=== PATIENT | female | born 1980 | race African-American/Black ===

== ENCOUNTER 2017-05-29 21:56 | Inpatient (IN) | payer MEDICAID ==
[~2017-05-29] VITALS: Ht 170.2 cm; Wt 181.6 kg
[~2017-05-29 21:56] MED LIST: ATOR20TA PO; ERGO1CAP23 PO; METF-370 PO
[2017-05-29] MEDS ORDERED: CLINDAMYCIN 600MG IV 50 ML IV ONE (22:30)
[2017-05-29] MEDS ORDERED: cefTRIAXone 1GM/10ml IVPUSH 10 ML IV ONE (22:30)
[2017-05-29 22:38] LABS: Basophils # (auto) 0 uL; Basophils % (auto) 0.4 % (0.0-2.0); Eosinophils # (auto) 0 uL; Hematocrit 46.8 % (36.0-46.0); Hemoglobin 15.1 g/dL (12.2-16.2); Lymphocytes # (auto) 1.6 uL; Lymphocytes % (auto) 13.4 % (10.0-50.0); Mean Corpuscular Hemoglobin 28.1 pg (28.0-32.0); Mean Corpuscular Hgb Conc. 32.2 g/dL (32.0-36.0); Mean Corpuscular Volume 87.1 fL (80.0-100.0); Monocytes # (auto) 1.2 uL; Monocytes % (auto) 10.5 % (0.0-12.0); Neutrophils # (auto) 8.9 uL; Neutrophils % (auto) 75.7 % (37.0-80.0); Nucleated Red Blood Cells % 0.4 %; Platelet Count (auto) 258 10^3/uL (140-450); Red Blood Cells 5.37 10^6/uL (4.0-5.20); Red Cell Distribution Width 14.8 % (11.8-14.3); White Blood Cell 11.7 10^3/uL (4.4-10.8)
[2017-05-29 23:01] LABS: Albumin 3.5 g/dL (3.4-5.0); BUN/Creatinine Ratio 8.2; Calcium 8.8 mg/dL (8.5-10.1); Potassium 3.5 mmol/L (3.5-5.1)
[2017-05-29 23:03] LABS: Bilirubin, Total 0.8 mg/dL (0.2-1.0); Total Protein 8.7 g/dL (6.4-8.2)
[2017-05-29] MEDS ORDERED: KETOROLAC TROMETH 30 MG/ML 1ML VIAL IV ONE (23:30)
[2017-05-30] MEDS ORDERED: HYDROcodone-ACET 10/325MG TAB PO ONE (00:45)
[2017-05-30] MEDS ORDERED: TEMAZEPAM 15 MG CAP PO PRN (03:45)
[2017-05-30] MEDS ORDERED: SODIUM CHLORIDE 0.9% 1,000 ML IV ONE (03:45)
[2017-05-30] MEDS ORDERED: ONDANSETRON HCL 4 MG/2 ML VIAL IV PRN (03:45)
[2017-05-30] MEDS ORDERED: ACETAMINOPHEN 325 MG TAB PO PRN (03:45)
[2017-05-30] MEDS: SODIUM CHLORIDE 0.9% 1,000 ML IV SCH ×2 (06:03→15:00)
[2017-05-30] MEDS: MORPHINE SULFATE 4 MG/ML SYR/VIAL IV PRN ×2 (06:11→07:15)
[2017-05-30] MEDS: CLINDAMYCIN 600MG IV 50 ML IV SCH ×3 (06:12→23:48)
[2017-05-30] MEDS: HYDROcodone-ACET 5/325MG TAB PO PRN ×2 (07:42→16:14)
[2017-05-30] MEDS ORDERED: cefTRIAXone 1GM/10ml IVPUSH 10 ML IV SCH (09:00)
[2017-05-30] MEDS: PANTOPRAZOLE 40 MG/10 ML VIAL IV SCH (10:00)
[2017-05-30] MEDS: ENOXAPARIN SOD 40 MG/0.4 ML SYRINGE SC SCH (10:01)
[2017-05-30 13:50] VITALS: BP 103/67
[2017-05-30] MEDS ORDERED: DEXTROSE (50%) 50ML SYRG IV PRN (15:30)
[2017-05-30] MEDS: LEVOFLOXACIN 500MG 100 ML IV SCH (16:08)
[2017-05-30 16:35] VITALS: BP 102/65
[2017-05-30] MEDS: ACCU-CHEK COMFORT CURVE STRIP VI SCH ×2 (17:00→22:00)
[2017-05-30] MEDS: InsuLIN REG 1unit/0.01ml Soln (100units/ml) SC SCH ×2 (17:00→22:00)
[2017-05-30] MEDS: PIPERACILLIN-TAZOB 3.375GM 50 ML IV SCH (18:20)
[2017-05-30 20:00] VITALS: BP 84/52
[2017-05-30 22:00] VITALS: BP 84/52
[2017-05-31 01:20] VITALS: BP 84/52
[2017-05-31] MEDS: PIPERACILLIN-TAZOB 3.375GM 50 ML IV SCH ×4 (01:41→18:06)
[2017-05-31] MEDS: SODIUM CHLORIDE 0.9% 1,000 ML IV SCH ×3 (01:42→22:11)
[2017-05-31 05:00] VITALS: BP 98/46
[2017-05-31] MEDS: CLINDAMYCIN 600MG IV 50 ML IV SCH ×3 (06:02→22:11)
[2017-05-31] MEDS: ACCU-CHEK COMFORT CURVE STRIP VI SCH ×4 (07:03→22:00)
[2017-05-31] MEDS: InsuLIN REG 1unit/0.01ml Soln (100units/ml) SC SCH ×4 (07:03→22:00)
[2017-05-31 07:38] LABS: Basophils # (auto) 0 uL; Basophils % (auto) 0.4 % (0.0-2.0); Eosinophils # (auto) 0 uL; Eosinophils % (auto) 0.1 % (0.0-7.0); Hematocrit 41.7 % (36.0-46.0); Hemoglobin 13.4 g/dL (12.2-16.2); Lymphocytes # (auto) 2.1 uL; Lymphocytes % (auto) 20.6 % (10.0-50.0); Mean Corpuscular Hemoglobin 28.4 pg (28.0-32.0); Mean Corpuscular Hgb Conc. 32.1 g/dL (32.0-36.0); Mean Corpuscular Volume 88.4 fL (80.0-100.0); Monocytes # (auto) 1.1 uL; Neutrophils % (auto) 67.9 % (37.0-80.0); Nucleated Red Blood Cells % 0.1 %; Platelet Count (auto) 222 10^3/uL (140-450); Red Blood Cells 4.72 10^6/uL (4.0-5.20); Red Cell Distribution Width 14.7 % (11.8-14.3); White Blood Cell 10.2 10^3/uL (4.4-10.8)
[2017-05-31 07:59] LABS: Albumin 2.7 g/dL (3.4-5.0); BUN/Creatinine Ratio 9.5; Bilirubin, Total 0.7 mg/dL (0.2-1.0); Calcium 7.6 mg/dL (8.5-10.1); Potassium 3.6 mmol/L (3.5-5.1); Total Protein 7.7 g/dL (6.4-8.2)
[2017-05-31 09:00] VITALS: BP 103/69
[2017-05-31] MEDS: PANTOPRAZOLE 40 MG/10 ML VIAL IV SCH (09:08)
[2017-05-31] MEDS: LEVOFLOXACIN 500MG 100 ML IV SCH (09:08)
[2017-05-31] MEDS: ENOXAPARIN SOD 40 MG/0.4 ML SYRINGE SC SCH (09:09)
[2017-05-31 12:29] VITALS: BP 110/69
[2017-05-31 12:50] LABS: Urine Bacteria NONE SEEN /hpf (None Seen); Urine Blood 3+ /uL (Negative); Urine Specific Gravity 1.025 (1.001-1.035); Urine WBC 136 /hpf (0 - 5)
[2017-05-31 17:00] VITALS: BP 107/62
[2017-05-31 21:49] VITALS: BP 102/74
[2017-06-01] MEDS: PIPERACILLIN-TAZOB 3.375GM 50 ML IV SCH ×4 (00:21→17:54)
[2017-06-01] MEDS: MORPHINE SULFATE 4 MG/ML SYR/VIAL IV PRN (00:34)
[2017-06-01 05:00] VITALS: BP 115/79
[2017-06-01] MEDS: CLINDAMYCIN 600MG IV 50 ML IV SCH ×3 (06:13→22:04)
[2017-06-01] MEDS: SODIUM CHLORIDE 0.9% 1,000 ML IV SCH ×2 (06:14→15:45)
[2017-06-01 06:50] LABS: Basophils # (auto) 0.1 uL; Basophils % (auto) 0.8 % (0.0-2.0); Eosinophils # (auto) 0.1 uL; Eosinophils % (auto) 0.8 % (0.0-7.0); Hematocrit 40.3 % (36.0-46.0); Hemoglobin 13.1 g/dL (12.2-16.2); Lymphocytes # (auto) 1.9 uL; Lymphocytes % (auto) 22.7 % (10.0-50.0); Mean Corpuscular Hemoglobin 28.5 pg (28.0-32.0); Mean Corpuscular Hgb Conc. 32.4 g/dL (32.0-36.0); Mean Corpuscular Volume 88.1 fL (80.0-100.0); Monocytes # (auto) 0.8 uL; Monocytes % (auto) 10.1 % (0.0-12.0); Neutrophils # (auto) 5.5 uL; Neutrophils % (auto) 65.6 % (37.0-80.0); Nucleated Red Blood Cells % 0.1 %; Platelet Count (auto) 259 10^3/uL (140-450); Red Blood Cells 4.58 10^6/uL (4.0-5.20); Red Cell Distribution Width 15.1 % (11.8-14.3); White Blood Cell 8.3 10^3/uL (4.4-10.8)
[2017-06-01] MEDS: ACCU-CHEK COMFORT CURVE STRIP VI SCH ×4 (07:00→22:14)
[2017-06-01] MEDS: InsuLIN REG 1unit/0.01ml Soln (100units/ml) SC SCH ×4 (07:00→22:00)
[2017-06-01 07:12] LABS: BUN/Creatinine Ratio 11.1; Calcium 8.3 mg/dL (8.5-10.1); Potassium 3.7 mmol/L (3.5-5.1)
[2017-06-01 09:08] VITALS: BP 105/76
[2017-06-01] MEDS: ENOXAPARIN SOD 40 MG/0.4 ML SYRINGE SC SCH (09:19)
[2017-06-01] MEDS: PANTOPRAZOLE 40 MG/10 ML VIAL IV SCH (09:19)
[2017-06-01] MEDS: LEVOFLOXACIN 500MG 100 ML IV SCH (09:19)
[2017-06-01 12:55] VITALS: BP 117/63
[2017-06-01 18:02] VITALS: BP 120/70
[2017-06-01 21:49] VITALS: BP 104/60
[2017-06-02] MEDS: PIPERACILLIN-TAZOB 3.375GM 50 ML IV SCH ×3 (00:29→11:17)
[2017-06-02 05:00] VITALS: BP 109/62
[2017-06-02] MEDS: CLINDAMYCIN 600MG IV 50 ML IV SCH (06:04)
[2017-06-02] MEDS: ACCU-CHEK COMFORT CURVE STRIP VI SCH ×2 (07:11→11:16)
[2017-06-02] MEDS: InsuLIN REG 1unit/0.01ml Soln (100units/ml) SC SCH ×2 (07:12→11:16)
[2017-06-02] MEDS: SODIUM CHLORIDE 0.9% 1,000 ML IV SCH ×2 (07:24→11:16)
[2017-06-02] MEDS: MORPHINE SULFATE 4 MG/ML SYR/VIAL IV PRN (07:25)
[2017-06-02 07:35] LABS: Basophils # (auto) 0 uL; Basophils % (auto) 0.5 % (0.0-2.0); Eosinophils # (auto) 0.1 uL; Eosinophils % (auto) 1.1 % (0.0-7.0); Hematocrit 41.8 % (36.0-46.0); Hemoglobin 13.3 g/dL (12.2-16.2); Lymphocytes # (auto) 1.9 uL; Lymphocytes % (auto) 30.2 % (10.0-50.0); Mean Corpuscular Hemoglobin 28.2 pg (28.0-32.0); Mean Corpuscular Hgb Conc. 31.9 g/dL (32.0-36.0); Mean Corpuscular Volume 88.3 fL (80.0-100.0); Monocytes # (auto) 0.6 uL; Monocytes % (auto) 9.5 % (0.0-12.0); Neutrophils # (auto) 3.7 uL; Neutrophils % (auto) 58.7 % (37.0-80.0); Nucleated Red Blood Cells % 0.3 %; Platelet Count (auto) 281 10^3/uL (140-450); Red Blood Cells 4.74 10^6/uL (4.0-5.20); Red Cell Distribution Width 14.8 % (11.8-14.3); White Blood Cell 6.2 10^3/uL (4.4-10.8)
[2017-06-02 08:06] LABS: Albumin 2.6 g/dL (3.4-5.0); Bilirubin, Total 0.5 mg/dL (0.2-1.0); Calcium 7.9 mg/dL (8.5-10.1); Potassium 3.9 mmol/L (3.5-5.1); Total Protein 7.6 g/dL (6.4-8.2)
[2017-06-02 09:49] VITALS: BP 119/56
[2017-06-02] MEDS: ENOXAPARIN SOD 40 MG/0.4 ML SYRINGE SC SCH (10:00)
[2017-06-02] MEDS: PANTOPRAZOLE 40 MG/10 ML VIAL IV SCH (10:26)
[2017-06-02] MEDS: LEVOFLOXACIN 500MG 100 ML IV SCH (10:26)
[2017-06-02 12:35] VITALS: BP 118/58
== END 2017-06-02 12:10 | disposition home or self-care (01) | DRG 383 ==
LOC: ER 21:56 → OVERFLOW 21:57 → EAST 05-30 13:35
PROVIDERS: ADMIT Nurse Practitioner; ATTEND Internal Medicine
DX: L03.211 Cellulitis of face (principal); I11.0 Hypertensive heart disease with heart failure; R65.10 Systemic inflammatory response syndrome (SIRS) of non-infectious origin without acute organ dysfunction; Z68.44 Body mass index [BMI] 60.0-69.9, adult; I50.9 Heart failure, unspecified; E66.01 Morbid (severe) obesity due to excess calories; K02.9 Dental caries, unspecified; K04.7 Periapical abscess without sinus; F17.210 Nicotine dependence, cigarettes, uncomplicated; J44.9 Chronic obstructive pulmonary disease, unspecified; E11.9 Type 2 diabetes mellitus without complications; K05.10 Chronic gingivitis, plaque induced; Z80.1 Family history of malignant neoplasm of trachea, bronchus and lung
CPT/HCPCS: 36415; 70486; 80048; 80053; 81001; 82962; 83605; 85025; 87040; 96361; 96365; 96375; C9113; J1815; J1885; J1956; J2405; J2543; J3490

== ENCOUNTER 2017-11-16 00:42 | Emergency (ER) | payer MEDICAID ==
[~2017-11-16] VITALS: Ht 170.2 cm; Wt 169.6 kg
[2017-11-16 08:10] LABS: Basophils # (auto) 0.1 uL; Eosinophils # (auto) 0.1 uL; Eosinophils % (auto) 1.5 % (0.0-7.0); Lymphocytes # (auto) 2.1 uL; Monocytes # (auto) 0.8 uL
[2017-11-16 08:12] LABS: Basophils % (auto) 1.2 % (0.0-2.0); Hematocrit 53.6 % (36.0-46.0); Hemoglobin 17.2 g/dL (12.2-16.2); Lymphocytes % (auto) 29.8 % (10.0-50.0); Mean Corpuscular Hgb Conc. 32.1 g/dL (32.0-36.0); Mean Corpuscular Volume 87.2 fL (80.0-100.0); Monocytes % (auto) 11.4 % (0.0-12.0); Neutrophils # (auto) 3.9 uL; Neutrophils % (auto) 56.1 % (37.0-80.0); Nucleated Red Blood Cells % 0.3 %; Platelet Count (auto) 244 10^3/uL (140-450); Red Blood Cells 6.14 10^6/uL (4.0-5.20); Red Cell Distribution Width 14.4 % (11.8-14.3); White Blood Cell 6.9 10^3/uL (4.4-10.8)
[2017-11-16 08:28] LABS: Albumin 3.5 g/dL (3.4-5.0); BUN/Creatinine Ratio 5.3; Bilirubin, Total 0.7 mg/dL (0.2-1.0); Calcium 9.4 mg/dL (8.5-10.1); Potassium 3.9 mmol/L (3.5-5.1); Total Protein 8.7 g/dL (6.4-8.2)
[2017-11-16 08:31] LABS: Urine Bacteria FEW /hpf (None Seen); Urine Blood 1+ /uL (Negative); Urine Budding Yeast MODERATE /hpf (None Seen); Urine Specific Gravity 1.031 (1.001-1.035); Urine WBC 43 /hpf (0 - 5)
[2017-11-16] MEDS ORDERED: SODIUM CHLORIDE 0.9% 1,000 ML IV ONE ×2 (08:36→09:45)
[2017-11-16] MEDS ORDERED: InsuLIN R (HUMAN) 100 UNITS in SODIUM CHL 0.9% 99 ML IV SCH (08:38)
[2017-11-16] MEDS ORDERED: InsuLIN REG 1unit/0.01ml Soln (100units/ml) IV ONE (08:45)
[2017-11-16 11:10] VITALS: BP 114/76
== END 2017-11-16 11:27 | disposition home or self-care (01) ==
LOC: ER 00:42
DX: N76.4 Abscess of vulva (principal); N39.0 Urinary tract infection, site not specified; E11.65 Type 2 diabetes mellitus with hyperglycemia; J44.9 Chronic obstructive pulmonary disease, unspecified; F17.210 Nicotine dependence, cigarettes, uncomplicated; E66.01 Morbid (severe) obesity due to excess calories; Z79.84 Long term (current) use of oral hypoglycemic drugs; Z79.899 Other long term (current) drug therapy; Z68.43 Body mass index [BMI] 50.0-59.9, adult
CPT/HCPCS: 36415; 80053; 81001; 82962; 85025; 96361; 96374; 99285; J1815; J7030

== ENCOUNTER 2018-12-12 03:36 | Inpatient (IN) | payer MEDICAID ==
[~2018-12-12] VITALS: Ht 170.2 cm; Wt 159.7 kg
[2018-12-12 04:20] LABS: Urine Bacteria MOD /hpf (None Seen); Urine Blood 1+ /uL (Negative); Urine Specific Gravity 1.033 (1.001-1.035); Urine WBC 38 /hpf (0 - 5)
[2018-12-12] MEDS ORDERED: SODIUM CHLORIDE 0.9% 1,000 ML IV ONE ×2 (06:30→12:15)
[2018-12-12 08:07] LABS: Alcohol, Urine < 3.0 mg/dL (0-5); Amphetamine Screen, Urine NEGATIVE (NEGATIVE); Barbiturate Scree,Urine NEGATIVE (NEGATIVE); Benzodiazephine Screen, Urine NEGATIVE (NEGATIVE); Cannabinoid Screen, Urine NEGATIVE (NEGATIVE); Cocaine Screen, Urine NEGATIVE (NEGATIVE); Opiate Scree,Urine NEGATIVE (NEGATIVE); Phencyclidine Screen, Urine NEGATIVE (NEGATIVE)
[2018-12-12 08:16] LABS: Basophils # (auto) 0.1 uL; Eosinophils # (auto) 0.1 uL; Eosinophils % (auto) 1.6 % (0.0-7.0); Hematocrit 44.2 % (36.0-46.0); Hemoglobin 15.1 g/dL (12.2-16.2); Lymphocytes # (auto) 2.3 uL; Lymphocytes % (auto) 40.7 % (10.0-50.0); Mean Corpuscular Hemoglobin 29.3 pg (28.0-32.0); Mean Corpuscular Hgb Conc. 34.3 g/dL (32.0-36.0); Mean Corpuscular Volume 85.4 fL (80.0-100.0); Monocytes # (auto) 0.5 uL; Monocytes % (auto) 7.9 % (0.0-12.0); Neutrophils # (auto) 2.8 uL; Neutrophils % (auto) 48.8 % (37.0-80.0); Nucleated Red Blood Cells % 0.2 %; Platelet Count (auto) 222 10^3/uL (140-450); Red Blood Cells 5.17 10^6/uL (4.0-5.20); Red Cell Distribution Width 12.9 % (11.8-14.3); White Blood Cell 5.7 10^3/uL (4.4-10.8)
[2018-12-12 08:31] LABS: Albumin 3.5 g/dL (3.4-5.0); Calcium 8.8 mg/dL (8.5-10.1)
[2018-12-12 08:33] LABS: BUN/Creatinine Ratio 12.2; Bilirubin, Total 0.4 mg/dL (0.2-1.0); Total Protein 8.1 g/dL (6.4-8.2)
[2018-12-12] MEDS ORDERED: cefTRIAXone 1GM/50ML D5W 50 ML IV ONE (08:45)
[2018-12-12] MEDS ORDERED: GLIP5TAB12 (09:30)
[2018-12-12] MEDS ORDERED: MORPHINE SULF INJ 2 MG/ML SYRINGE 1ML IV PRN (12:15)
[2018-12-12] MEDS ORDERED: NITROGLYCERIN 0.4 MG SL TAB SL PRN (12:15)
[2018-12-12] MEDS ORDERED: ONDANSETRON HCL 4 MG/2 ML VIAL IV PRN (12:15)
[2018-12-12] MEDS ORDERED: HYDROcodone-ACET 5/325MG TAB PO PRN (12:15)
[2018-12-12] MEDS ORDERED: ACETAMINOPHEN 500 MG TAB PO PRN (12:15)
[2018-12-12] MEDS ORDERED: DEXTROSE (50%) 50ML SYRG IV PRN (12:15)
[2018-12-12] MEDS: FLUCONAZOLE 200MG/100ML 100 ML IV SCH ×2 (12:43→16:41)
--- NOTE | 2018-12-12 16:09 | NUR ---
MS admit from ER BLAKE MCCLURE admitted to tele/MS after SBAR received. Patient oriented to MICHELLE DAVIDSON, RN primary RN, unit, room 245B, bed, and unit policies regarding patient care and visiting hours. Patient weighed by bedscale and encouraged to call if they need something. All questions and concerns addressed, patient verbalized understanding. Bed in low and locked position, rails up x2, no-slip socks on.
--- NOTE | 2018-12-12 16:30 | NUR ---
IV insertion and IV removal IV access obtained, via clean sterile technique by inserting 20 gauge catheter at LEFT AC after 1 attempt. IV secured properly. No trauma to site. Patient tolerated well. IV DC'd with clean sterile technique, catheter fully intact. Pressure dressing applied to site. Patient tolerated well.
--- NOTE | 2018-12-12 16:31 | NUR ---
Patient admitted to same day surgery center via wheelchair. Patient transported with all personal belongings and no s/s of distress noted.
[2018-12-12] MEDS: SODIUM CHLORIDE 0.9% 1,000 ML IV SCH ×2 (16:39→23:44)
[2018-12-12 16:41] VITALS: BP 125/87
--- NOTE | 2018-12-12 16:46 | NUR ---
home meds/patient name Patient stated she does not take any medications at home. Patient stated that she goes by the name Mervat and would like be be addressed as this.
--- NOTE | 2018-12-12 17:30 | NUR ---
ENCOURAGED PATIENT FOR ACCUCHECK PATIENT STATED SHE HAS ANXIETY WITH ACCUCHECKS, STATED THAT IF SHE TOLERATED THE IV INSERTION SHE CAN TOLERATE THE ACCUCHECK LANCET, PATIENT REQUESTING TO BE POKED ON A DIFFERENT LOCATION THAN FINGERTIP, OR WITH A LARGER NEEDLE. INFORMED THAT THE LANCETS ARE DESIGNED FOR FINGERTIP POKES WITH THE APPROPRIATE DEPTH AND I CANNOT SAFELY DO THAT WITH A DIFFERENT NEEDLE. PATIENT FINALLY CONSENTED TO ACCUCHECK, TOLERATED IT WELL. WILL ADMINISTER INSULIN ORDERED.
[2018-12-12] MEDS ORDERED: TAMSULOSIN HYDROCHLORIDE 0.4 MG CAP PO SCH (18:00)
--- NOTE | 2018-12-12 19:40 | NUR ---
Opening Shift Note Assumed care of patient, awake and alert. No S/S of distress/SOB or pain. Instructed on POC and to call for assistance PRN, will continue to monitor for changes Q1hr and PRN.
[2018-12-12] MEDS: ACCU-CHEK COMFORT CURVE STRIP VI SCH ×2 (19:43→22:00)
[2018-12-12] MEDS: InsuLIN REG 1unit/0.01ml Soln (100units/ml) SC SCH ×2 (19:43→22:00)
[2018-12-12 22:00] VITALS: BP 135/82
[2018-12-12] MEDS: MORPHINE SULF INJ 2 MG/ML SYRINGE 1ML IV PRN (22:19)
[2018-12-13] MEDS ORDERED: LEVETIRACETAM 500 MG/5ML INJ IV ONE (00:01)
--- NOTE | 2018-12-13 00:08 | NUR ---
Rounds Patient sleeping. No S/S of distress/SOB on room air, respirations even and unlabored. Will continue to monitor changes q1hr and PRN.
--- NOTE | 2018-12-13 03:50 | NUR ---
Outside pharmacy/ Keppra Verified with outside patient, keppra pulled by other RN, pulled in error, Keppra not for patient.
[2018-12-13 05:00] VITALS: BP 118/85
[2018-12-13] MEDS: SODIUM CHLORIDE 0.9% 1,000 ML IV SCH ×3 (05:00→22:00)
--- NOTE | 2018-12-13 06:12 | NUR ---
Rounds Patient sleeping, respirations even and unlabored. No S/S of distress/SOB or pain. Will continue to monitor changes q1hr and PRN.
[2018-12-13] MEDS: ACCU-CHEK COMFORT CURVE STRIP VI SCH ×4 (06:26→22:21)
[2018-12-13] MEDS: InsuLIN REG 1unit/0.01ml Soln (100units/ml) SC SCH ×4 (06:27→22:21)
--- NOTE | 2018-12-13 06:40 | NUR ---
IV removal Left AC forearm IV DC'd with clean sterile technique due to infiltration, catheter fully intact. Pressure dressing applied to site. Patient tolerated well. Pt requests to have new IV inserted in 15 minutes. NOTE:
--- NOTE | 2018-12-13 07:01 | NUR ---
IV insertion IV access obtained, via clean sterile technique by inserting 22 gauge catheter at left forearm after 1 attempt(s). IV secured properly. No trauma to site. Patient tolerated well. NOTE:
[2018-12-13 07:22] LABS: Basophils # (auto) 0.1 uL; Basophils % (auto) 1.9 % (0.0-2.0); Eosinophils # (auto) 0.1 uL; Eosinophils % (auto) 2.4 % (0.0-7.0); Hematocrit 44.1 % (36.0-46.0); Hemoglobin 15.1 g/dL (12.2-16.2); Lymphocytes # (auto) 2.2 uL; Mean Corpuscular Hemoglobin 29.7 pg (28.0-32.0); Mean Corpuscular Hgb Conc. 34.2 g/dL (32.0-36.0); Mean Corpuscular Volume 86.9 fL (80.0-100.0); Monocytes # (auto) 0.5 uL; Monocytes % (auto) 9.2 % (0.0-12.0); Neutrophils # (auto) 2.5 uL; Neutrophils % (auto) 46.5 % (37.0-80.0); Nucleated Red Blood Cells % 0.1 %; Platelet Count (auto) 217 10^3/uL (140-450); Red Blood Cells 5.08 10^6/uL (4.0-5.20); Red Cell Distribution Width 12.8 % (11.8-14.3); White Blood Cell 5.4 10^3/uL (4.4-10.8)
[2018-12-13 07:36] LABS: Anion Gap 10 (5-15); BUN/Creatinine Ratio 12.3; Blood Urea Nitrogen 7 mg/dL (7-18); Calcium 8.4 mg/dL (8.5-10.1); Carbon Dioxide 22 mmol/L (21-32); Chloride 101 mmol/L (98-107); GFR African American 154 mL/min; GFR Non-African American 128 mL/min; Glucose 310 mg/dL (74-106); Potassium 3.9 mmol/L (3.5-5.1); Sodium 133 mmol/L (136-145)
[2018-12-13 09:00] VITALS: BP 132/69
[2018-12-13] MEDS: cefTRIAXone 1GM/50ML D5W 50 ML IV SCH (09:16)
[2018-12-13] MEDS: FLUCONAZOLE 200MG/100ML 100 ML IV SCH (10:02)
[2018-12-13] MEDS: FAMOTIDINE 20 MG TAB PO SCH (10:08)
--- NOTE | 2018-12-13 12:25 | NUR ---
pt was trying to get food outside, pt was educated about diabetic diet, medication and exercise, made aware she cannot get food outside due to her high blood sugar, pt stated " I don't care about the complications of high blood sugar i will eat whatever I want". will continue to monitor.
[2018-12-13 13:00] VITALS: BP 110/70
[2018-12-13 17:00] VITALS: BP 118/70
--- NOTE | 2018-12-13 19:10 | NUR ---
Opening Shift Note Assumed care of patient, awake and alert. No S/S of distress/SOB or pain. Safety measures in place bed in lowest position, side rails x2 up, call light within reach. Instructed on POC and to call for assist PRN, will continue to monitor for changes Q1hr and PRN.
--- NOTE | 2018-12-13 19:28 | NUR ---
Patient complaining that she is "being starved". Educated patient on her high blood sugar levels and why we need to control what is being eaten, patient stated " I don't care about my blood sugar" and is threatening to go AMA. Will continue to monitor.
[2018-12-13 22:00] VITALS: BP 99/62
[2018-12-13] MEDS: MORPHINE SULF INJ 2 MG/ML SYRINGE 1ML IV PRN (22:22)
[2018-12-14 05:06] VITALS: BP 96/65
[2018-12-14 07:07] LABS: BUN/Creatinine Ratio 9.4; Calcium 8.7 mg/dL (8.5-10.1); Potassium 4.1 mmol/L (3.5-5.1)
[2018-12-14] MEDS: ACCU-CHEK COMFORT CURVE STRIP VI SCH ×2 (07:12→11:21)
[2018-12-14] MEDS: InsuLIN REG 1unit/0.01ml Soln (100units/ml) SC SCH ×2 (07:12→11:31)
--- NOTE | 2018-12-14 07:39 | NUR ---
Opening Note Assumed pt care from [facility] nurse. Pt is a/ox4 with no s/s of distress or SOB. Pt is currently sitting upright in bed with no complaints other than mild vaginal discomfort. Discussed POC with pt and the possibility of d/c today; pt stated that she "does not want to leave... until [her issue] is resolved". Discussed with pt the possibility of PO antibiotics and pt stated "those don't work". Safety measures maintained with call light within reach, bed in lowest position and side rails up. Will continue to monitor for changes q1hr and prn.
[2018-12-14 09:00] VITALS: BP 131/77
[2018-12-14] MEDS: cefTRIAXone 1GM/50ML D5W 50 ML IV SCH (09:17)
[2018-12-14] MEDS: FAMOTIDINE 20 MG TAB PO SCH (09:18)
[2018-12-14] MEDS: SODIUM CHLORIDE 0.9% 1,000 ML IV SCH ×2 (09:18→13:00)
[2018-12-14] MEDS: FLUCONAZOLE 200MG/100ML 100 ML IV SCH (10:11)
[2018-12-14 13:00] VITALS: BP 117/67
[2018-12-14] MEDS: MORPHINE SULF INJ 2 MG/ML SYRINGE 1ML IV PRN (13:45)
--- NOTE | 2018-12-14 15:05 | NUR ---
DISCHARGE: PATIENT WAS DISCHARGED BY DR. BOSTON, PER PATIENT SHE CALLED HER RIDE SOON THE DOCTOR TOLD HER SHE WAS GOING HOME AND SHE DOES NOT HAVE TIME TO WAIT FOR DISCHARGED PAPER WORK. PATIENT PROVIDED WITH HER PRESCRIPTIONS AND SIGNED COPY TO STATE SHE HAD RECEIVED THEM PRIOR TO DISCHARGE. IV REMOVED WITH CATHETER INTACT. PATIENT WALKED TO ELEVATOR WITH ALL BELONGINGS. PATIENT REFUSED TO WAIT FOR WHEEL CHAIR STATING "IM FINE, MY RIDE IS WAITING".
--- NOTE | 2018-12-14 17:39 | NUR ---
Discharge planning per consult, patient has orders to dc with home health for diabetic teaching and med compliance. Referral faxed to [facility], placed a follow up call, spoke with Ericka and was advised that they will accept patient on to services and start of care will be within 1-2 days upon discharge. Advised patient is discharging today. Obtained auth for [facility] from [facility] [id number]. Addendum: 12/14/18 at 1741 by HUNTER LYMAN Amended: Links added.
== END 2018-12-14 15:00 | disposition home health service (06) | DRG 463 ==
LOC: ER 03:38 → OVERFLOW 03:39 → EAST 16:12
PROVIDERS: ADMIT Nurse Practitioner Acute Care; ATTEND Hospitalist
DX: N39.0 Urinary tract infection, site not specified (principal); I11.0 Hypertensive heart disease with heart failure; E11.65 Type 2 diabetes mellitus with hyperglycemia; I50.9 Heart failure, unspecified; E66.01 Morbid (severe) obesity due to excess calories; B37.3 Candidiasis of vulva and vagina; F17.210 Nicotine dependence, cigarettes, uncomplicated; E86.0 Dehydration; J44.9 Chronic obstructive pulmonary disease, unspecified; Z79.84 Long term (current) use of oral hypoglycemic drugs; Z79.899 Other long term (current) drug therapy; Z68.43 Body mass index [BMI] 50.0-59.9, adult; Z80.1 Family history of malignant neoplasm of trachea, bronchus and lung; Z91.19 Patient's noncompliance with other medical treatment and regimen
CPT/HCPCS: 36415; 71046; 80048; 80053; 80307; 81001; 82962; 83036; 85025; 96361; 96365; 96367; G0378; J0696; J1450; J1815

== ENCOUNTER → 2019-03-19 | Day surgery (SDC) | payer MEDICAID ==
[2019-03-16 09:19] LABS: Basophils # (auto) 0 uL; Basophils % (auto) 0.7 % (0.0-2.0); Eosinophils # (auto) 0.1 uL; Eosinophils % (auto) 1.9 % (0.0-7.0); Hematocrit 46.2 % (36.0-46.0); Hemoglobin 15.3 g/dL (12.2-16.2); Lymphocytes # (auto) 2.4 uL; Lymphocytes % (auto) 39.2 % (10.0-50.0); Mean Corpuscular Hemoglobin 29.1 pg (28.0-32.0); Mean Corpuscular Volume 88.3 fL (80.0-100.0); Monocytes # (auto) 0.5 uL; Monocytes % (auto) 7.6 % (0.0-12.0); Neutrophils # (auto) 3.1 uL; Neutrophils % (auto) 50.6 % (37.0-80.0); Nucleated Red Blood Cells % 0.1 %; Platelet Count (auto) 215 10^3/uL (140-450); Red Blood Cells 5.24 10^6/uL (4.0-5.20); Red Cell Distribution Width 12.3 % (11.8-14.3); White Blood Cell 6.2 10^3/uL (4.4-10.8)
[2019-03-16 09:31] LABS: INR 0.98 (0.9-1.15); Partial Thromboplastin Time 26.1 sec (23.64-32.05)
[~2019-03-19] VITALS: Ht 170.2 cm; Wt 145.1 kg
[~2019-03-19] MED LIST changes: -ATOR20TA PO; -ERGO1CAP23 PO; +LIDOCAINE VISCOUS 2% 15ML UD ONE; -METF-370 PO; +SODIUM CHLORIDE LOCK 10 ML ONE; +diphenhdrAMINE HCL 50 MG/1 ML VL ONE
[2019-03-19] MEDS: fentaNYL CITRATE 100 MCG/2 ML VL ONE ×3 (09:11→09:19)
[2019-03-19] MEDS: MIDAZOLAM HCL 5 MG/ML-1ML VIAL ONE ×3 (09:11→09:19)
[2019-03-19 09:53] VITALS: BP 117/78
== END | disposition home or self-care (01) ==
LOC: GI 08:27
PROVIDERS: ATTEND Internal Medicine Gastroenterology
DX: E66.01 Morbid (severe) obesity due to excess calories (principal); E11.9 Type 2 diabetes mellitus without complications; F20.0 Paranoid schizophrenia; J44.9 Chronic obstructive pulmonary disease, unspecified; F12.90 Cannabis use, unspecified, uncomplicated; F17.210 Nicotine dependence, cigarettes, uncomplicated; G47.33 Obstructive sleep apnea (adult) (pediatric); Z98.890 Other specified postprocedural states; Z68.43 Body mass index [BMI] 50.0-59.9, adult
CPT/HCPCS: 36415; 43235; 82962; 84702; 85025; 85610; 85730; J1200; J2250; J3010; J7030; 99152

== ENCOUNTER 2019-04-09 09:22 | Emergency (ER) | payer MEDICAID ==
[~2019-04-09] VITALS: Ht 170.2 cm; Wt 145.1 kg
[2019-04-09 09:56] VITALS: BP 108/68
[2019-04-09] MEDS ORDERED: ALBUTEROL SULF 2.5 MG/0.5ML(0.5%) NEB SOLN NEB ONE (10:15)
[2019-04-09] MEDS ORDERED: cefTRIAXone SOD 1,000 MG VL IM ONE (10:15)
[2019-04-09] MEDS ORDERED: IPRATROPIUM BROM 0.5 MG/2.5ML INH SOL NEB ONE (10:15)
== END 2019-04-09 10:50 | disposition home or self-care (01) ==
LOC: ER 09:22
DX: J20.9 Acute bronchitis, unspecified (principal); J03.90 Acute tonsillitis, unspecified; J44.9 Chronic obstructive pulmonary disease, unspecified; I11.0 Hypertensive heart disease with heart failure; I50.9 Heart failure, unspecified; E11.9 Type 2 diabetes mellitus without complications; F17.210 Nicotine dependence, cigarettes, uncomplicated
CPT/HCPCS: 71046; 94640; 96372; 99283; J0696; J7611; J7644

== ENCOUNTER 2019-09-16 22:18 | Emergency (ER) | payer MEDICAID ==
[~2019-09-16] VITALS: Ht 170.2 cm; Wt 149.7 kg
[2019-09-16] MEDS ORDERED: ACETAMINOPHEN 325 MG TAB PO ONE (23:00)
[2019-09-16] MEDS ORDERED: ONDANSETRON ODT 4 MG TAB PO ONE (23:00)
[2019-09-16] MEDS ORDERED: cefTRIAXone SOD 1,000 MG VL IM ONE (23:15)
[2019-09-16] MEDS ORDERED: KETOROLAC TROMETH 60MG/2ML VIAL IM ONE (23:15)
[2019-09-16] MEDS ORDERED: INSULIN LISPRO (HUMAN) 100 UNITS/ML ML SC ONE ×2 (23:45)
[2019-09-16 23:55] LABS: Basophils # (auto) 0.1 10 ^3/uL (0-0.2); Basophils % (auto) 0.5 % (0.0-2.0); Eosinophils # (auto) 0 10 ^3/uL (0-0.8); Eosinophils % (auto) 0.2 % (0.0-7.0); Hematocrit 41.4 % (36.0-46.0); Hemoglobin 13.6 g/dL (12.2-16.2); Lymphocytes # (auto) 2.4 10 ^3/uL (0.4-5.4); Lymphocytes % (auto) 16.5 % (10.0-50.0); Mean Corpuscular Hemoglobin 28.5 pg (28.0-32.0); Mean Corpuscular Hgb Conc. 32.8 g/dL (32.0-36.0); Mean Corpuscular Volume 86.8 fL (80.0-100.0); Monocytes # (auto) 1.4 10 ^3/uL (0-1.3); Monocytes % (auto) 9.8 % (0.0-12.0); Neutrophils # (auto) 10.7 10 ^3/uL (1.6-8.6); Nucleated Red Blood Cells % 0.1 %; Platelet Count (auto) 320 10^3/uL (140-450); Red Blood Cells 4.77 10^6/uL (4.0-5.20); Red Cell Distribution Width 12.7 % (11.8-14.3); White Blood Cell 14.6 10^3/uL (4.4-10.8)
[2019-09-17 00:06] LABS: Albumin 2.6 g/dL (3.4-5.0); BUN/Creatinine Ratio 6.3; Calcium 8.7 mg/dL (8.5-10.1); Potassium 3.6 mmol/L (3.5-5.1)
[2019-09-17 00:19] LABS: Bilirubin, Total 0.8 mg/dL (0.2-1.0); Total Protein 8.4 g/dL (6.4-8.2)
[2019-09-17] MEDS ORDERED: SODIUM CHLORIDE 0.9% 1,000 ML IV ONE ×2 (01:30→05:30)
[2019-09-17] MEDS ORDERED: InsuLIN REG 1unit/0.01ml Soln (100units/ml) SC ONE ×2 (03:00)
[2019-09-17] MEDS ORDERED: InsuLIN REG 1unit/0.01ml Soln (100units/ml) IV ONE (03:00)
[2019-09-17 04:54] VITALS: BP 100/67
[2019-09-17 05:45] LABS: Urine Amorphous Crystal FEW /hpf (None Seen); Urine Bacteria MOD /hpf (None Seen); Urine Blood TRACE /uL (Negative); Urine Hyaline Cast MANY /lpf (0 - 2); Urine Mucus FEW (None Seen); Urine Specific Gravity 1.037 (1.001-1.035); Urine WBC 34 /hpf (0 - 5)
[2019-09-17] MEDS ORDERED: TEMAZEPAM 15 MG CAP PO PRN (05:45)
[2019-09-17] MEDS ORDERED: ONDANSETRON HCL 4 MG/2 ML VIAL IV PRN (05:45)
[2019-09-17] MEDS ORDERED: HYDROcodone-ACET 5/325MG TAB PO PRN (05:45)
[2019-09-17] MEDS ORDERED: ACETAMINOPHEN 325 MG TAB PO PRN (05:45)
[2019-09-17] MEDS ORDERED: DEXTROSE (50%) 50ML SYRG IV PRN (05:45)
[2019-09-17] MEDS ORDERED: CLINDAMYCIN 600MG IV 50 ML IV SCH (06:00)
[2019-09-17] MEDS ORDERED: InsuLIN REG 1unit/0.01ml Soln (100units/ml) SC SCH (08:00)
[2019-09-17] MEDS ORDERED: ACCU-CHEK COMFORT CURVE STRIP VI SCH (08:00)
[2019-09-17] MEDS ORDERED: cefTRIAXone 1GM/50ML D5W 50 ML IV SCH (09:00)
[2019-09-17] MEDS ORDERED: FAMOTIDINE 20 MG TAB PO SCH (10:00)
== END 2019-09-17 05:53 | disposition left against medical advice (07) ==
LOC: ER 22:20
DX: L03.319 Cellulitis of trunk, unspecified (principal); E11.65 Type 2 diabetes mellitus with hyperglycemia; J44.9 Chronic obstructive pulmonary disease, unspecified; F17.210 Nicotine dependence, cigarettes, uncomplicated; I11.0 Hypertensive heart disease with heart failure; I50.9 Heart failure, unspecified
CPT/HCPCS: 36415; 76705; 80053; 81001; 82962; 83605; 85025; 96360; 96372; 99285; J0696; J1815; J1885; J7030; Q0162

== ENCOUNTER 2019-09-17 23:49 | Emergency (ER) | payer MEDICAID ==
[~2019-09-17] VITALS: Ht 170.2 cm; Wt 149.7 kg
[2019-09-18] MEDS ORDERED: LIDOCAINE 2%HCL (LOCAL ANESTH.) INJ 10ml MDV IJ ONE (07:45)
[2019-09-18] MEDS ORDERED: LIDOCAINE 2%HCL (LOCAL ANESTH.) INJ 20ML MDV ONE (07:56)
[2019-09-18] MEDS ORDERED: cefTRIAXone SOD 1,000 MG VL IM ONE (08:15)
[2019-09-18 08:27] VITALS: BP 108/69
== END 2019-09-18 08:33 | disposition home or self-care (01) ==
LOC: ER 23:49
DX: L02.212 Cutaneous abscess of back [any part, except buttock and flank] (principal); E66.01 Morbid (severe) obesity due to excess calories; F17.210 Nicotine dependence, cigarettes, uncomplicated; I11.0 Hypertensive heart disease with heart failure; I50.9 Heart failure, unspecified; J44.9 Chronic obstructive pulmonary disease, unspecified; E11.9 Type 2 diabetes mellitus without complications; Z68.43 Body mass index [BMI] 50.0-59.9, adult
CPT/HCPCS: 10060; 87070; 87075; 87077; 87186; 99283; J0696; J2001

== ENCOUNTER 2019-09-20 17:56 | Emergency (ER) | payer MEDICAID ==
[~2019-09-20] VITALS: Ht 170.2 cm; Wt 149.7 kg
[2019-09-20 20:50] VITALS: BP 108/72
== END 2019-09-20 20:59 | disposition home or self-care (01) ==
LOC: ER 17:56
DX: Z48.01 Encounter for change or removal of surgical wound dressing (principal); I11.0 Hypertensive heart disease with heart failure; I50.9 Heart failure, unspecified; J44.9 Chronic obstructive pulmonary disease, unspecified; E11.9 Type 2 diabetes mellitus without complications; F17.210 Nicotine dependence, cigarettes, uncomplicated

== ENCOUNTER 2019-09-25 22:43 | Emergency (ER) | payer MEDICAID ==
[~2019-09-25] VITALS: Ht 170.2 cm; Wt 148.4 kg
[2019-09-25 23:40] VITALS: BP 119/79
== END 2019-09-26 02:00 | disposition left against medical advice (07) ==
LOC: ER 22:43
DX: Z48.00 Encounter for change or removal of nonsurgical wound dressing (principal); Z53.21 Procedure and treatment not carried out due to patient leaving prior to being seen by health care provider

== ENCOUNTER 2021-10-29 08:11 | Emergency (ER) | payer MEDICAID ==
[~2021-10-29] VITALS: Ht 170.2 cm; Wt 145.6 kg
[2021-10-29 09:26] VITALS: BP 98/67
[2021-10-29] MEDS ORDERED: cefTRIAXone SOD 1,000 MG VL IM ONE (10:15)
[2021-10-29] MEDS ORDERED: BENZOCAINE (DENTAL) 20 % SPRAY 60ML MT ONE (10:15)
[2021-10-29] MEDS ORDERED: KETOROLAC TROMETH 60MG/2ML VIAL IM ONE (10:15)
[2021-10-29] MEDS ORDERED: AMOX-277 PO (10:20)
[2021-10-29] MEDS ORDERED: IBUP800T27 PO (10:20)
[2021-10-29] MEDS ORDERED: LIDOCAINE 1% HCL (LOCAL ANESTH.) INJ 20ML MDV ONE (10:41)
== END 2021-10-29 10:57 | disposition home or self-care (01) ==
LOC: ER 08:11
DX: S02.5XXA Fracture of tooth (traumatic), initial encounter for closed fracture (principal); I11.0 Hypertensive heart disease with heart failure; I50.9 Heart failure, unspecified; J44.9 Chronic obstructive pulmonary disease, unspecified; E11.9 Type 2 diabetes mellitus without complications; F17.210 Nicotine dependence, cigarettes, uncomplicated; K04.7 Periapical abscess without sinus; X58.XXXA Exposure to other specified factors, initial encounter; Y93.89 Activity, other specified; Y92.89 Other specified places as the place of occurrence of the external cause; Y99.8 Other external cause status
CPT/HCPCS: 81025; 96372; 99284; J0696; J1885; J2001

== ENCOUNTER 2022-01-31 10:17 | Emergency (ER) | payer MEDICAID ==
[~2022-01-31] VITALS: Ht 175.3 cm; Wt 151.6 kg
[~2022-01-31 10:17] MED LIST changes: +AMOX-277 PO; +IBUP800T27 PO; -LIDOCAINE VISCOUS 2% 15ML UD ONE; -SODIUM CHLORIDE LOCK 10 ML ONE; -diphenhdrAMINE HCL 50 MG/1 ML VL ONE
[2022-01-31 12:12] VITALS: BP 122/80
[2022-01-31] MEDS ORDERED: InsuLIN REG 1unit/0.01ml Soln (100units/ml) SC ONE ×2 (12:45→13:00)
[2022-01-31] MEDS ORDERED: cefTRIAXone SOD 1,000 MG VL IM ONE (13:00)
[2022-01-31] MEDS ORDERED: CEPH-510 PO (13:21)
[2022-01-31] MEDS ORDERED: FLUC150T38 PO (13:21)
== END 2022-01-31 13:41 | disposition home or self-care (01) ==
LOC: ER 10:17
DX: R59.0 Localized enlarged lymph nodes (principal); E11.65 Type 2 diabetes mellitus with hyperglycemia; I11.0 Hypertensive heart disease with heart failure; I50.9 Heart failure, unspecified; J44.9 Chronic obstructive pulmonary disease, unspecified; F17.210 Nicotine dependence, cigarettes, uncomplicated; Z91.199 Patient's noncompliance with other medical treatment and regimen due to unspecified reason; Z88.6 Allergy status to analgesic agent
CPT/HCPCS: 82962; 96372; 99284; J0696

== ENCOUNTER 2022-03-06 22:28 | Emergency (ER) | payer MEDICAID ==
[~2022-03-06] VITALS: Ht 170.2 cm; Wt 148.3 kg
[~2022-03-06 22:28] MED LIST changes: +CEPH-510 PO; +FLUC150T38 PO
[2022-03-07 00:21] VITALS: BP 120/86
[2022-03-07] MEDS ORDERED: IOHEXOL 300 MG/ML 100ML BOTTLE IJ ONE (01:18)
[2022-03-07] MEDS ORDERED: AMOX-277 PO (03:48)
[2022-03-07] MEDS ORDERED: IBUP800T27 PO (03:49)
[2022-03-07] MEDS ORDERED: KETOROLAC TROMETH 60MG/2ML VIAL IM ONE (04:00)
== END 2022-03-07 04:33 | disposition home or self-care (01) ==
LOC: ER 22:28
DX: K04.7 Periapical abscess without sinus (principal); E78.5 Hyperlipidemia, unspecified; E11.9 Type 2 diabetes mellitus without complications; F17.210 Nicotine dependence, cigarettes, uncomplicated; Z79.899 Other long term (current) drug therapy
CPT/HCPCS: 70487; 70491; 96372; 99285; J1885; Q9967

== ENCOUNTER 2022-06-22 18:25 | Emergency (ER) | payer MEDICAID ==
[~2022-06-22] VITALS: Ht 170.2 cm; Wt 144.8 kg
[2022-06-22 18:45] VITALS: BP 140/89
== END 2022-06-22 21:00 | disposition left against medical advice (07) ==
LOC: ER 18:25
DX: H57.12 Ocular pain, left eye (principal); Z53.21 Procedure and treatment not carried out due to patient leaving prior to being seen by health care provider

== ENCOUNTER 2022-10-22 15:02 | Emergency (ER) | payer MEDICAID ==
[~2022-10-22] VITALS: Ht 170.2 cm; Wt 137.6 kg
[~2022-10-22 15:02] MED LIST changes: -AMOX-277 PO; +AMOX875T4 PO; +IBUP-1456 PO; -IBUP800T27 PO
[2022-10-22 15:20] VITALS: BP 119/83; PULSE 100; RESP 16; O2SAT 94
== END 2022-10-23 01:36 | disposition left against medical advice (07) ==
LOC: ER 15:02
DX: R22.0 Localized swelling, mass and lump, head (principal); H53.8 Other visual disturbances; Z53.21 Procedure and treatment not carried out due to patient leaving prior to being seen by health care provider
CPT/HCPCS: 82962

== ENCOUNTER 2024-08-11 21:56 | Emergency (ER) | payer MEDICAID ==
[~2024-08-11] VITALS: Ht 170.2 cm; Wt 137.0 kg
--- NOTE | 2024-08-11 22:33 | ED.PDOC ---
Eye-HPI HPI Comments HPI: Poor Historian. 43-year-old female presents to emergency department for one day history of right mandibular jaw line swelling and tenderness. She denies any tooth pain. This never happened before. Denies any other acute symptoms. Pain is constant radiating to her right side of the face. Vitals: temperature of 98.7F, pulse of 118, respiratory rate of 18, blood pressure of 134/80, SpO2 of 95%RA Past Medical History: Prediabetes Past Surgical History: Denies REVIEW OF SYSTEMS: CONSTITUTIONAL: Denies acute: fever, diaphoresis, chills, generalized weakness. HEAD: Denies acute: photophobia Eyes: Denies acute: Double vision, vision loss, eye pain, eye discharge. EARS: Denies acute: tinnitus, hearing loss, ear discharge, ear pain, THROAT: Denies acute: sore throat, swelling, difficulty swallowing , pain with sw allowing, change in voice. NECK: Denies acute: neck pain, neck swelling, stiff neck. HEART: Denies acute : chest pain, palpitations, LUNGS: Denies acute: SOB, wheezing, cough, hemoptysis ABDOMEN: Denies acute: abdominal pain, Nausea, Vomiting, diarrhea, melena , hematemesis, hematochezia SKIN: Denies acute: rash, redness, lesions, itchiness. EXTREMITIES: Denies acute: calf pain, numbness, tingling, weakness, denies pain in extremity. Denies acute: Low back pain. Neuro: Denies acute: focal neurological deficit, motor or sensory focal neurological deficit, tremors, seizure like activity, confusion, dizziness, change in mental status, loss of bowel or bladder function, cauda equina like symptoms. : Denies acute: dysuria, hematuria, flank pain, increase in urinary frequency. PSYCH: Denies acute: hallucination, suicidal ideation, homicidal ideation. FEMALE: Denies acute: abnormal vaginal bleeding, foul odor, unusual discharge. PHYSICAL EXAM: General: --[id number]------acute distress, awake and alert. Head: normocephalic, atraumatic. Neck: trachea is midline, no swelling. Throat: Normal phonation. No erythema no exudates. Bed a dentition and noted cavities. No pus appreciated in the oral mucosa. Noted swelling over the right mandibular jaw line that is tenderness to palpation and firm. Pain radiates to her right face. Eyes:, no erythema, no purulent discharge, no proptosis, no icterus. Heart: regular tachycardic, no significant murmur appreciated. Lungs: no apparent respiratory distress, Able to speak in full sentences. No wheezing, no rhonchi, no crackles. No stridors Clear to auscultation bilaterally. Abdomen: non tender to palpation, non distended, soft, no guarding, no rebound, + bowel sounds. Morbidly obese Neuro: Awake, Alert, oriented to name, self, situation, follows commands GCS=15. Speech is normal. Skin: no petechia, no purpura, no cyanosis, non-pale, not jaundice. Lower extremities: --no - Pitting edema no deformity, no focal swelling, no calf TTP. Makes eye contact. moves all four extremities. Face: no apparent facial droop. Ambulating in the ED independently. ED COURSE: Chief Complaint: Face pain Time Seen by MD: 22:22 Primary Care Provider: DR. RIBEIRO Reviewed Notes: Nurses Notes, Allergies Allergies: Coded Allergies: NO KNOWN ALLERGIES (Unverified , 03/16/19) Home Meds Active Scripts Ibuprofen (Ibuprofen) 800 Mg Tab, 1 TAB PO Q6HPRN PRN, #30 TAB 0 Refills Prov:MARIO ODONNELL 03/07/22 Amoxicillin & Pot Clavulanate (Amoxicillin/Potassium Cla) 875 Mg Tab, 1 TAB PO BID for 10 Days, #20 TAB 0 Refills Prov:MARIO ODONNELL 03/07/22 Fluconazole (Diflucan) 150 Mg Tab, 1 TAB PO ONCE, #1 TAB 1 Refill Prov:OVIDIO ZUNIGA 01/31/22 Cephalexin ( Keflex 500) 500 Mg Cap, 1 CAP PO QID for 8 Days, #32 CAP Prov:OVIDIO ZUNIGA 01/31/22 Ibuprofen (Ibuprofen) 800 Mg Tab, 1 TAB PO TID PRN, #30 TAB 0 Refills Prov:ANAYA PLATA 10/29/21 Amoxicillin & Pot Clavulanate (Amoxicillin/Potassium Cla) 875 Mg Tab, 1 TAB PO BID for 7 Days, #14 TAB 0 Refills Prov:ANAYA PLATA 10/29/21 Mode of Arrival: Ambulatory Past Medical History PAST MEDICAL HISTORY: DM, High Lipids Surgical History: Denies all surgeries MATERIALS AND PROCESSES MANAGER History: No Pertinent MATERIALS AND PROCESSES MANAGER History Family History Family History: Reviewed,noncontributory to illness Social History Smoker: Cigarettes, Greater Than 1 Pack/Day Alcohol: Denies ETOH Use Drugs: Denies Drug Use Lives In: Home Was a procedure done? Was a procedure done?: No EENT DIFF Eye: N/A Mouth: AIDS, Herpangina Sore Throat: Herpangina, Herpetic Stomatitis, Ramos's Angina, Peritonsillar Abscess, Peritonsillar Cellulitis, Pharyngitis, Other (Salivary Gland abnormality, lymphadenopathy, neoplasm, abscess, dental infection) X-Ray, Labs, Meds, VS Vital Signs Date Time Temp Pulse Resp B/P (MAP) Pulse Ox O2 Delivery O2 Flow Rate FiO2 08/12/24 01:18 98.0 100 21 116/72 (87) 97 98.0 08/11/24 23:40 123/81 08/11/24 22:24 98.7 118 18 134/80 (98) 95 98.7 Lab Test 08/11/24 22:29 08/11/24 22:25 Range/Units White Blood Count 9.4 4.4-10.8 10^3/uL Red Blood Count 4.66 4.0-5.20 10^6/uL Hemoglobin 13.6 12.2-16.2 g/dL Hematocrit 40.7 36.0-46.0 % Mean Corpuscular Volume 87.4 80.0-100.0 fL Mean Corpuscular Hemoglobin 29.3 28.0-32.0 pg Mean Corpuscular Hemoglobin Concent 33.5 32.0-36.0 g/dL Red Cell Distribution Width 12.8 11.8-14.3 % Platelet Count 274 140-450 10^3/uL Mean Platelet Volume 8.2 6.9-10.8 fL Neutrophils (%) (Auto) 64.3 37.0-80.0 % Lymphocytes (%) (Auto) 27.8 10.0-50.0 % Monocytes (%) (Auto) 7.1 0.0-12.0 % Eosinophils (%) (Auto) 0.5 0.0-7.0 % Basophils (%) (Auto) 0.3 0.0-2.0 % Neutrophils # (Auto) 6.0 1.6-8.6 10 ^3/uL Lymphocytes # (Auto) 2.6 0.4-5.4 10 ^3/uL Monocytes # (Auto) 0.7 0-1.3 10 ^3/uL Eosinophils # (Auto) 0 0-0.8 10 ^3/uL Basophils # (Auto) 0 0-0.2 10 ^3/uL Nucleated Red Blood Cells 0.1 % Sodium Level 134 L 136-145 mmol/L Potassium Level 3.4 L 3.5-5.1 mmol/L Chloride Level 102 98-107 mmol/L Carbon Dioxide Level 23 20-31 mmol/L Anion Gap 9 5-15 Blood Urea Nitrogen < 5 L 9-23 mg/dL Creatinine 0.66 0.550-1.02 mg/dL Glomerular Filtration Rate Calc 113 >90 mL/min BUN/Creatinine Ratio 7.6 L 10.0-20.0 Serum Glucose 292 H 74-106 mg/dL Lactic Acid Level 1.5 0.4-2.0 mmol/L Calcium Level 9.6 8.7-10.4 mg/dL Total Bilirubin 0.7 0.2-1.0 mg/dL Aspartate Amino Transferase (AST) 12 L 13-40 U/L Alanine Aminotransferase (ALT) 14 7-40 U/L Alkaline Phosphatase 85 46-116 U/L C-Reactive Protein High Sensitivity 5.78 H <1.0 mg/dL Total Protein 8.1 5.7-8.2 g/dL Albumin 4.5 3.2-4.8 g/dL POC Glucose 278 H 70-106 mg/dl Current Medications Medications (Trade) Dose Ordered Sig/Jose Alberto Route Start Time Stop Time Status Last Admin Fentanyl Citrate 100 mcg ONCE ONCE IV 08/11/24 22:30 08/11/24 22:31 DC 08/11/24 23:40 Sodium Chloride 1,000 ml @ 1,000 mls/hr Q1H ONCE IV 08/11/24 22:30 08/11/24 23:29 DC 08/11/24 23:40 [facility] [id number] [place] [id number] Ph: [phone] DIAGNOSTIC IMAGING Diagnostic Imaging Report : [id number] Signed PATIENT: BLAKE MCCLURE ACCT: [id number] UNIT: [id number] : 1980 LOC: ER ROOM / BED: / AGE / SEX: 43 / F ADM STATUS: REG ER SERVICE 22 ORDERING PHYSICIAN: SENG WHITTEN DO PROCEDURE(s): FACIC - MAXILLOFACIAL WITH REASON: R facial swelling ORDER NUMBER(s): [id number], ACCESSION NUMBER(s): [id number] HISTORY: R facial swelling TECHNIQUE: Nonenhanced axial images through the facial bones with coronal and sagittal MPR. Radiation Dose Information: CT Dose: CTDI volume is mGy. Dose-length product is mGy*cm COMPARISON: FACIC on DOS: 03/07/22, MAXILLOFACIAL WITH on DOS: 03/07/22 FINDINGS: Soft tissues: There is considerable soft tissue thickening overlying the body of the right mandible with an enhancing low-density collection measuring up to approximately 4 x 1.8 cm consistent with abscess. Several mildly enlarged presumably reactive lymph nodes noted bilaterally predominantly in levels 1B and 2A. Mandible: Multiple periapical lucencies bilaterally consistent with periodontal disease. Maxilla: Periapical lucencies around bilateral molars consistent with periodontal disease. Zygomatic arches: Unremarkable Nasal bone: Unremarkable Orbits: Unremarkable Paranasal Sinuses / Mastoid air cells / Middle ear cavities: Clear IMPRESSION: Considerable periodontal disease. Soft tissue thickening overlying the body of the right mandible with an enhancing low-density collection measuring up to 4 cm consistent with abscess. Radiation optimization: All CT scans at this facility use at least one of these dose optimization techniques: automated exposure control mA and/or kV adjustment per patient size (includes targeted exams where dose is matched to clinical indication) or iterative reconstruction. ATED BY: JESUS HERNANDEZ MD DICTATED DATE/TIME: 08/12/245 SIGNED BY: JESUS HERNANDEZ MD SIGNED DATE/TIME: 08/12/245 CC: Time of 1ST Reevaluation: 01:07 (The case was discussed with the transfer team (HPI, physical exam, labs and diagnostic tests that were available at the time of disposition, ED course, treatment plan) on the phone. They agreed to accept the patient to their service for higher level of care and for maxillofacial consultation intervention evaluation. [facility]. Accepting physician ER to ER is Dr. Coyle) Reevaluation 1ST: Unchanged Patient Education/Counseling: Diagnosis, Treatment Family Education/Counseling: No Family Present Comments Patient presented with the above HPI.--facial swelling/abscess----workup was initiated. patient was found with the above mentioned diagnosis. the following medications were ordered: please refer to order lists of meds and tests obtained by myself Dr. Whitten. Patient ED course and VS have been stabilized. Patient has been reassessed in the ED and remained in a stable condition. Pertinent incidental findings were discussed with the patient and/or family. Patient/family voices understanding and is agreeable with plan. Patient has been observed in the ED adequate length of time to insure improvement/stability. Escalation of care considered: Consideration of escalation to observation or admission Patient was transferred to higher level care for further evaluation and treatment and likely surgical intervention by maxillofacial surgery. Antibiotics initiated in the ED. Case discussed with the [facility] who accepted the transfer. All the reports of any imaging studies that were ordered by myself were reviewed by myself. Departure 1 Departure Time of Disposition: 01:07 Impression: Primary Impression: Mandibular abscess Additional Impression: Periodontal disease Disposition: 02 SHORT TERM HOSPITAL Admit to: Tele Condition: Guarded Discharged With: Self Critical Care Note Critical Care Time?: Yes (45 min-critical care time only) I personally scribed for SENG WHITTEN DO ([email or web address]) on 08/11/24 at 23:09. Electronically submitted by Clinton Lorenzo ([email or web address]). SENG WHITTEN DO August 11, 2024 22:32
[2024-08-11 22:44] LABS: Basophils # (auto) 0 10 ^3/uL (0-0.2); Basophils % (auto) 0.3 % (0.0-2.0); Eosinophils # (auto) 0 10 ^3/uL (0-0.8); Eosinophils % (auto) 0.5 % (0.0-7.0); Hematocrit 40.7 % (36.0-46.0); Hemoglobin 13.6 g/dL (12.2-16.2); Lymphocytes # (auto) 2.6 10 ^3/uL (0.4-5.4); Lymphocytes % (auto) 27.8 % (10.0-50.0); Mean Corpuscular Hemoglobin 29.3 pg (28.0-32.0); Mean Corpuscular Hgb Conc. 33.5 g/dL (32.0-36.0); Mean Corpuscular Volume 87.4 fL (80.0-100.0); Monocytes # (auto) 0.7 10 ^3/uL (0-1.3); Monocytes % (auto) 7.1 % (0.0-12.0); Neutrophils % (auto) 64.3 % (37.0-80.0); Nucleated Red Blood Cells % 0.1 %; Platelet Count (auto) 274 10^3/uL (140-450); Red Blood Cells 4.66 10^6/uL (4.0-5.20); Red Cell Distribution Width 12.8 % (11.8-14.3); White Blood Cell 9.4 10^3/uL (4.4-10.8)
[2024-08-11 23:01] LABS: Alanine Aminotransferase 14 U/L (7-40); Albumin 4.5 g/dL (3.2-4.8); Alkaline Phosphatase 85 U/L (46-116); Anion Gap 9 (5-15); Bilirubin, Total 0.7 mg/dL (0.2-1.0); Calcium 9.6 mg/dL (8.7-10.4); Carbon Dioxide 23 mmol/L (20-31); Chloride 102 mmol/L (98-107); Total Protein 8.1 g/dL (5.7-8.2)
[2024-08-11 23:05] LABS: Aspartate Aminotransferase 12 U/L (13-40); BUN/Creatinine Ratio 7.6 (10.0-20.0); Blood Urea Nitrogen < 5 mg/dL (9-23); Glucose 292 mg/dL (74-106); Potassium 3.4 mmol/L (3.5-5.1); Sodium 134 mmol/L (136-145)
[2024-08-11 23:13] LABS: CRP High Sensitivity 5.78 mg/dL (<1.0)
[2024-08-11] MEDS: AMPICILLIN & SULBACTAM SODIUM 3 GM in SODIUM CHL 0.9% 100 ML IV STA (23:14)
[2024-08-11] MEDS: SODIUM CHLORIDE 0.9% 1,000 ML IV ONE (23:40)
[2024-08-11] MEDS: fentaNYL CITRATE 100 MCG/2 ML VL IV ONE (23:40)
[2024-08-11] MEDS: IOHEXOL 300 MG/ML 100ML BOTTLE IJ ONE (23:44)
--- NOTE | 2024-08-12 00:08 | DVH ---
HISTORY: R facial swelling TECHNIQUE: Nonenhanced axial images through the facial bones with coronal and sagittal MPR. Radiation Dose Information: CT Dose: CTDI volume is mGy. Dose-length product is mGy*cm COMPARISON: FACIC on DOS: 03/07/22, MAXILLOFACIAL WITH on DOS: 03/07/22 FINDINGS: Soft tissues: There is considerable soft tissue thickening overlying the body of the right mandible with an enhancing low-density collection measuring up to approximately 4 x 1.8 cm consistent with ab scess. Several mildly enlarged presumably reactive lymph nodes noted bilaterally predominantly in lev els 1B and 2A. Mandible: Multiple periapical lucencies bilaterally consistent with periodontal disease. Maxilla: Periapical lucencies around bilateral molars consistent with periodontal disease. Zygomatic arches: Unremarkable Nasal bone: Unremarkable Orbits: Unremarkable Paranasal Sinuses / Mastoid air cells / Middle ear cavities: Clear IMPRESSION: Considerable periodontal disease. Soft tissue thickening overlying the body of the right mandible wit h an enhancing low-density collection measuring up to 4 cm consistent with abscess. Radiation optimization: All CT scans at this facility use at least one of these dose optimization marco hniques: automated exposure control mA and/or kV adjustment per patient size (includes targeted exam s where dose is matched to clinical indication) or iterative reconstruction.
[2024-08-12 01:15] VITALS: PULSE 104; RESP 17; O2SAT 98
[2024-08-12] MEDS: AMPICILLIN & SULBACTAM SODIUM 3 GM in SODIUM CHL 0.9% 100 ML IV STA (02:01)
[2024-08-12] MEDS: fentaNYL CITRATE 100 MCG/2 ML VL IV ONE (02:07)
[2024-08-12 02:31] VITALS: BP 145/92; PULSE 104; RESP 13; TEMP 98.8; O2SAT 96
[2024-08-12] MEDS: metroNIDAZOLE 500MG/100ML 100 ML IV ONE (02:38)
[2024-08-12] MEDS: cefTRIAXone 1GM/50ML D5W 50 ML IV ONE ×2 (02:38→02:39)
== END 2024-08-12 02:49 | disposition short-term general hospital (02) ==
LOC: ER 21:56
DX: M27.2 Inflammatory conditions of jaws (principal); K05.6 Periodontal disease, unspecified; E11.9 Type 2 diabetes mellitus without complications; F17.210 Nicotine dependence, cigarettes, uncomplicated; R51.9 Headache, unspecified; Z79.899 Other long term (current) drug therapy
CPT/HCPCS: 36415; 70487; 80053; 82947; 83605; 85025; 86141; 87040; 96365; 96367; 96375; 96376; 99285; J0696; J3010; Q9967; 82962